=== PATIENT | female | born 1980 | race Caucasian/White ===

== ENCOUNTER → 2017-10-14 | Outpatient (CLI) | payer OTHER ==
[~2017-10-14] MED LIST: ALBU90OI INH; ALBU90OI61 INH; AMOX500 PO; CODGUAEL PO; HYDACE5 PO; IBUP600; NYQUIL; OXYM.05NI; PRED20 PO; PROM25 PO; Prednisone20 MG PO; SULTRIDS PO
== END ==
LOC: LAB SHORT 08:47 → LAB 08:47
PROVIDERS: Nurse Practitioner Family
DX: Z01.419 Encounter for gynecological examination (general) (routine) without abnormal findings (principal)
CPT/HCPCS: G0145

== ENCOUNTER → 2019-01-13 | Outpatient (CLI) | payer OTHER | LOC: LAB UCHC 16:39 → LAB SHORT 16:39 | DX: N39.0 Urinary tract infection, site not specified (principal) | CPT/HCPCS: 87086 ==

== ENCOUNTER → 2020-05-21 | Outpatient (CLI) | payer OTHER ==
[~2020-05-21] MED LIST changes: +ALBU90OI6 INH; +Flonase 0.05% N16 GM; +HYDCHL25 PO; +HYDHCL25 PO; +Prilosec10 M1 PO; +TUMS500 MG PO; +VALA500 PO; +ZYRTEC10 M2 PO
== END | disposition home or self-care (01) ==
LOC: PLD 08:05 → LAB SHORT 08:05
DX: B35.1 Tinea unguium (principal); L60.2 Onychogryphosis
CPT/HCPCS: 88305; 88312

== ENCOUNTER 2020-06-25 09:36 | Day surgery (SDC) | payer OTHER ==
[~2020-06-25 09:36] MED LIST changes: -ALBU90OI6 INH; -Flonase 0.05% N16 GM; -HYDCHL25 PO; -HYDHCL25 PO; -Prilosec10 M1 PO; -TUMS500 MG PO; -VALA500 PO; -ZYRTEC10 M2 PO
--- NOTE | 2020-06-25 16:16 | NUR ---
REVIEWED PATIENT ALLERGIES WITH PHARMACY
[2020-06-25] MEDS ORDERED: Flonase 0.05% N16 GM (17:20)
[2020-06-25] MEDS ORDERED: HYDCHL25 PO (17:20)
[2020-06-25] MEDS ORDERED: HYDHCL25 PO (17:21)
[2020-06-25] MEDS ORDERED: Prilosec10 M1 PO (17:22)
[2020-06-25] MEDS ORDERED: ALBU90OI6 INH (17:22)
[2020-06-25] MEDS ORDERED: ZYRTEC10 M2 PO (17:22)
[2020-06-25] MEDS ORDERED: VALA500 PO (17:22)
[2020-06-25] MEDS ORDERED: TUMS500 MG PO (17:23)
== END 2020-06-25 17:16 | disposition home or self-care (01) ==
LOC: ATC 09:36
DX: N73.9 Female pelvic inflammatory disease, unspecified (principal); R70.0 Elevated erythrocyte sedimentation rate; Z79.899 Other long term (current) drug therapy; Z88.1 Allergy status to other antibiotic agents; Z88.0 Allergy status to penicillin; Z88.2 Allergy status to sulfonamides
CPT/HCPCS: 96365; J0456; J7050

== ENCOUNTER 2020-06-26 00:42 | Day surgery (SDC) | payer OTHER ==
[~2020-06-26 00:42] MED LIST changes: +ALBU90OI6 INH; +Flonase 0.05% N16 GM; +HYDCHL25 PO; +HYDHCL25 PO; +Prilosec10 M1 PO; +TUMS500 MG PO; +VALA500 PO; +ZYRTEC10 M2 PO
== END 2020-06-26 17:17 | disposition home or self-care (01) ==
LOC: ATC 00:42
DX: N73.9 Female pelvic inflammatory disease, unspecified (principal); R70.0 Elevated erythrocyte sedimentation rate; I10 Essential (primary) hypertension; J45.909 Unspecified asthma, uncomplicated; Z88.1 Allergy status to other antibiotic agents; Z88.0 Allergy status to penicillin; Z88.2 Allergy status to sulfonamides
CPT/HCPCS: 96365; J0456; J7050

== ENCOUNTER → 2020-12-23 | Outpatient (CLI) | payer OTHER | LOC: LAB 12:17 → LAB SHORT 12:17 | DX: L08.0 Pyoderma (principal); Z88.0 Allergy status to penicillin; Z88.1 Allergy status to other antibiotic agents; Z88.2 Allergy status to sulfonamides; Z88.8 Allergy status to other drugs, medicaments and biological substances | CPT/HCPCS: 87070; 87205 ==

== ENCOUNTER 2021-04-10 08:09 | Day surgery (SDC) | payer OTHER ==
[~2021-04-10] VITALS: Ht 182.9 cm; Wt 165.9 kg
--- NOTE | 2021-04-10 09:48 | NUR ---
History, Chart, Medications and Allergies reviewed before start of procedure. Lungs clear T/O to Auscultation. Patient confirms NPO status and agrees with scheduled surgery. Pre-Op teaching done. Pt verbalizes understanding. Patient reports completing Chlorhexadine shower X2 prior to admission to hospital. Patient States Post-Procedure ride home has been arranged.
[2021-04-22] MEDS ORDERED: Percocet 5-3251 EACH PO (11:56)
[2021-04-22] MEDS ORDERED: HYDHCL25 PO (11:56)
== END 2021-04-10 23:59 | disposition home or self-care (01) ==
LOC: ORSCMMR 08:09 → ORD 09:30 → ORSCMMR 09:30 → ORD 05-08 13:00
DX: R10.32 Left lower quadrant pain (principal); N70.11 Chronic salpingitis; Z53.9 Procedure and treatment not carried out, unspecified reason
CPT/HCPCS: J1580; J2704; J3010; J7120

== ENCOUNTER 2021-05-07 06:08 | Day surgery (SDC) | payer OTHER ==
[~2021-05-07] VITALS: Ht 182.9 cm; Wt 164.4 kg
[~2021-05-07 06:08] MED LIST changes: +Percocet 5-3251 EACH PO
--- NOTE | 2021-05-07 07:51 | NUR ---
SECOND LINE PER ANESTHESIA, 20G LFA X1 ATTEMPT
--- NOTE | 2021-05-07 12:26 | NUR ---
Dressing to procedure site clean, dry, intact with no visible drainage, swelling, erythema or bruising noted. Discharge instructions reviewed with patient. Patient verbalizes understanding. Copy given to patient to take home. Discharged via wheelchair to private car for ride home.
== END 2021-05-07 12:28 | disposition home or self-care (01) ==
LOC: ORSCMMR 06:08
PROVIDERS: Obstetrics & Gynecology
PROC: 0UB54ZZ Excision of Right Fallopian Tube, Percutaneous Endoscopic Approach (ICD-10-PCS; principal; 2021-05-07 07:30)
PROC: 0U5F4ZZ Destruction of Cul-de-sac, Percutaneous Endoscopic Approach (ICD-10-PCS; principal; 2021-05-07 07:30)
PROC: 8E0W4CZ Robotic Assisted Procedure of Trunk Region, Percutaneous Endoscopic Approach (ICD-10-PCS; principal; 2021-05-07 07:30)
DX: N94.6 Dysmenorrhea, unspecified (principal); R10.32 Left lower quadrant pain; N70.11 Chronic salpingitis; N80.3 Endometriosis of pelvic peritoneum; N73.6 Female pelvic peritoneal adhesions (postinfective); N94.12 Deep dyspareunia; I10 Essential (primary) hypertension; J45.909 Unspecified asthma, uncomplicated; F41.9 Anxiety disorder, unspecified; E66.01 Morbid (severe) obesity due to excess calories; Z68.43 Body mass index [BMI] 50.0-59.9, adult; Z79.899 Other long term (current) drug therapy
CPT/HCPCS: 58661; 58662; S2900; 88305; A9270; J1100; J1580; J1885; J2250; J2405; J2550; J2704; J3010; J7120